=== PATIENT | female | born 1980 | race Caucasian/White ===

== ENCOUNTER 2017-03-05 10:40 | Outpatient (CLI) | payer OTHER ==
[2017-03-05 11:01] VITALS: BP 110/88
[2017-03-05 11:03] VITALS: BP 121/81
[2017-03-05 12:23] LABS: ADD MIUA? YES; BILIRUBIN NEGATIVE; BLOOD NEGATIVE; COLOR STRAW ((YELLOW)); GLUCOSE (STRIP) NEGATIVE; KETONES NEGATIVE; LEUKOCYTES MODERATE; NITRITE NEGATIVE; PROTEIN (STRIP) NEGATIVE; SPECIFIC GRAVITY 1.002 (1.000-1.030); UROBILINOGEN 0.2 MG/DL (0.2-1.0)
[2017-03-05 12:25] LABS: EPITHELIAL CELLS RARE /HPF; RED BLOOD CELLS 0-5 /HPF (0-5)
[2017-03-05 12:26] LABS: BACTERIA 1+ /HPF; MUCUS NONE SEEN /LPF; UCUL ADDED? YES
[2017-03-05 13:08] VITALS: BP 127/76
[2017-03-05 16:50] LABS: CANDIDA DNA PROBE NEGATIVE; GARDNERELLA DNA PROBE NEGATIVE; INTERNAL CONTROL VALID? YES
[2017-03-06] MEDS ORDERED: EXPECTA PRENAT1 EACH PO (12:34)
[2017-03-06] MEDS ORDERED: PRILOSEC10 MG PO (12:34)
[2017-03-06] MEDS ORDERED: GAVISCON ES CH1 EACH PO (12:36)
[2017-03-06] MEDS ORDERED: COLACE100 MG PO (12:36)
[2017-03-08 13:42] LABS: CHLAMYDIA TRACHOMATIS NEGATIVE; NEISSERIA GONORRHOEAE NEGATIVE
== END 2017-03-05 16:35 | disposition home or self-care (01) ==
LOC: LDRP-OP 10:40 → 2WEST 10:41 → LDRP-OP 05-24 09:35
PROVIDERS: Midwife; Obstetrics & Gynecology Gynecology
DX: O23.40 Unspecified infection of urinary tract in pregnancy, unspecified trimester (principal); Z3A.00 Weeks of gestation of pregnancy not specified
CPT/HCPCS: 59025; 81003; 87077; 87086; 87186; 87480; 87491; 87510; 87591; 87660; G0378; J0702

== ENCOUNTER 2017-03-06 11:13 | Outpatient (CLI) | payer OTHER ==
[~2017-03-06] VITALS: Ht 167.6 cm; Wt 87.1 kg
[2017-03-06 11:32] VITALS: BP 117/76
[2017-03-06] MEDS ORDERED: EXPECTA PRENAT1 EACH PO (12:34)
[2017-03-06] MEDS ORDERED: PRILOSEC10 MG PO (12:34)
[2017-03-06] MEDS ORDERED: GAVISCON ES CH1 EACH PO (12:36)
[2017-03-06] MEDS ORDERED: COLACE100 MG PO (12:36)
== END 2017-03-06 13:20 | disposition home or self-care (01) ==
LOC: LDRP-OP 11:13 → 2WEST 11:14 → LDRP-OP 05-24 22:15
DX: O47.03 False labor before 37 completed weeks of gestation, third trimester (principal); Z3A.33 33 weeks gestation of pregnancy; Z82.79 Family history of other congenital malformations, deformations and chromosomal abnormalities; O28.8 Other abnormal findings on antenatal screening of mother; O43.123 Velamentous insertion of umbilical cord, third trimester; O09.523 Supervision of elderly multigravida, third trimester
CPT/HCPCS: 59025; G0378; J0702

== ENCOUNTER 2017-03-12 12:29 | Outpatient (CLI) | payer OTHER ==
[~2017-03-12] VITALS: Ht 167.6 cm; Wt 89.1 kg
[~2017-03-12 12:29] MED LIST: COLACE100 MG PO; EXPECTA PRENAT1 EACH PO; GAVISCON ES CH1 EACH PO; PRILOSEC10 MG PO
[2017-03-12 13:02] VITALS: BP 129/80
[2017-03-12 14:01] VITALS: BP 129/85
[2017-03-12 15:26] VITALS: BP 164/92
[2017-03-12 15:30] VITALS: BP 149/85
[2017-03-12 15:59] VITALS: BP 138/87
== END 2017-03-12 17:00 | disposition home or self-care (01) ==
LOC: LDRP-OP 12:29 → 2WEST 12:30 → LDRP-OP 05-24 13:41
DX: O26.893 Other specified pregnancy related conditions, third trimester (principal); O13.3 Gestational [pregnancy-induced] hypertension without significant proteinuria, third trimester; Z3A.34 34 weeks gestation of pregnancy; Q95.0 Balanced translocation and insertion in normal individual
CPT/HCPCS: 59025; G0378; J3105; J7120

== ENCOUNTER 2017-04-02 06:38 | Inpatient (IN) | payer OTHER ==
[~2017-04-02] VITALS: Ht 167.6 cm; Wt 91.2 kg
[2017-04-02] VITALS (33 sets, daily range): BP systolic 122–170; BP diastolic 76–111
[2017-04-02 09:00] LABS: EOSINOPHIL (%) 0.6 % (0-5); EOSINOPHIL COUNT 0.1 K/uL (0-0.3); HEMATOCRIT 37.4 % (36.0-46.0); IMMATURE GRANULOCYTE (%) 1.1 % (0.0-0.7); IMMATURE GRANULOCYTE COUNT 0.1 K/uL; INSTRUMENT ABS NEUTROPHIL CT 7.4 K/uL; LYMPHOCYTE COUNT 1.6 K/uL (1.0-2.8); MCH 28.3 PG (29.0-34.0); MCHC 32.9 G/DL (30.0-36.0); MCV 86.2 FL (83-99); MEAN PLAT.VOLUME 11.5 uM^3 (9.5-12.4); MONOCYTE (%) 11.2 % (3-12); MONOCYTE COUNT 1.2 K/uL (0-0.8); NEUTROPHIL (%) 71.9 % (45-76); NEUTROPHIL COUNT 7.4 K/uL (1.8-6.4); PLATELET COUNT 186 K/uL (156-360); RBC DIS.WIDTH-CV 14.1 % (11.8-14.6); RBC DIS.WIDTH-SD 43.4 % (39-53); RED BLOOD COUNT 4.34 M/uL (3.80-5.20); WHITE BLOOD COUNT 10.3 K/uL (4.1-10.2)
[2017-04-02] MEDS ORDERED: IBUPROFEN800 MG PO (17:43)
[2017-04-03 16:13] VITALS: BP 143/81
[2017-04-03 21:00] VITALS: BP 138/79
[2017-04-03 21:07] VITALS: BP 143/81
[2017-04-04] MEDS ORDERED: LABETALOL HCL100 MG PO (08:06)
== END 2017-04-04 17:43 | disposition home or self-care (01) | DRG 775 ==
LOC: LDRP-OP 06:38 → 2WEST 06:39 → LDRP-OP 20:20 → 2WEST 04-04 17:43 → LDRP-OP 05-24 17:21
PROVIDERS: Midwife
DX: O36.63X0 Maternal care for excessive fetal growth, third trimester, not applicable or unspecified (principal); O24.429 Gestational diabetes mellitus in childbirth, unspecified control; O99.824 Streptococcus B carrier state complicating childbirth; O40.3XX0 Polyhydramnios, third trimester, not applicable or unspecified; O43.123 Velamentous insertion of umbilical cord, third trimester; R03.0 Elevated blood-pressure reading, without diagnosis of hypertension; O99.354 Diseases of the nervous system complicating childbirth; G43.909 Migraine, unspecified, not intractable, without status migrainosus; O99.62 Diseases of the digestive system complicating childbirth; K21.9 Gastro-esophageal reflux disease without esophagitis; O99.344 Other mental disorders complicating childbirth; F41.9 Anxiety disorder, unspecified; O99.72 Diseases of the skin and subcutaneous tissue complicating childbirth; L30.9 Dermatitis, unspecified; Z3A.37 37 weeks gestation of pregnancy; Z37.0 Single live birth
CPT/HCPCS: 85025; J0595; J2540; J7120